=== PATIENT | male | born 1995 | race Caucasian/White ===

== ENCOUNTER 2017-01-15 20:03 | Emergency (ER) | payer OTHER ==
[2017-01-15 20:59] VITALS: BP 123/66
== END 2017-01-15 20:59 | disposition home or self-care (01) ==
LOC: ED 20:03
DX: M54.5 Low back pain (principal); R51 Headache
CPT/HCPCS: J1885

== ENCOUNTER 2017-02-07 13:05 | Emergency (ER) | payer OTHER ==
[~2017-02-07] VITALS: Ht 172.7 cm; Wt 96.2 kg
[2017-02-07 15:00] VITALS: BP 106/80
== END 2017-02-07 15:00 | disposition home or self-care (01) ==
LOC: ED 13:05
DX: R19.7 Diarrhea, unspecified (principal); R10.9 Unspecified abdominal pain

== ENCOUNTER 2017-03-19 00:18 | Emergency (ER) | payer OTHER ==
[2017-03-19 01:01] VITALS: BP 137/78
== END 2017-03-19 01:11 | disposition home or self-care (01) ==
LOC: ED 00:18
DX: S61.305A Unspecified open wound of left ring finger with damage to nail, initial encounter (principal); W45.8XXA Other foreign body or object entering through skin, initial encounter; Y93.89 Activity, other specified; Y99.8 Other external cause status; Y92.89 Other specified places as the place of occurrence of the external cause
CPT/HCPCS: 90715

== ENCOUNTER 2017-03-20 00:30 | Emergency (ER) | payer OTHER ==
[2017-03-20 01:22] VITALS: BP 116/69
== END 2017-03-20 01:22 | disposition home or self-care (01) ==
LOC: ED 00:30
DX: S61.211A Laceration without foreign body of left index finger without damage to nail, initial encounter (principal); W26.8XXA Contact with other sharp object(s), not elsewhere classified, initial encounter; Y93.G2 Activity, grilling and smoking food; Y99.8 Other external cause status; Y92.89 Other specified places as the place of occurrence of the external cause
CPT/HCPCS: A4570

== ENCOUNTER 2017-07-03 11:42 | Emergency (ER) | payer OTHER ==
[~2017-07-03] VITALS: Ht 175.3 cm; Wt 76.4 kg
[2017-07-03 13:40] LABS: BASOPHIL % 0.6 % (0-2); PLATELET COUNT 241 x10^3mcL (130-400)
[2017-07-03 13:44] LABS: RED CELL DISTRIBUTION WIDTH 14.6 % (11.5-14.5)
[2017-07-03 13:48] LABS: CARBON DIOXIDE 30.9 mmol/L (21-32); CHLORIDE SERUM 105 mmol/L (98-107); GLUCOSE SERUM 89 mg/dL (74-106); POTASSIUM SERUM 4.1 mmol/L (3.5-5.1); SODIUM SERUM 141 mmol/L (136-145)
[2017-07-03 13:49] LABS: ALBUMIN 4.1 g/dL (3.4-5.0); ALKALINE PHOSPHATASE 79 U/L (46-116); ALT/SGPT 22 U/L (16-63); AMYLASE 79 U/L (25-115); AST/SGOT 17 U/L (15-37); BILIRUBIN TOTAL 0.8 mg/dL (0.20-1.00); CALCIUM 8.7 mg/dL (8.5-10.1); CREATININE SERUM 0.9 mg/dL (0.7-1.3); GFR1 > 60 mL/min; LIPASE 107 IU/L (73-393); TOTAL PROTEIN, SERUM 7.8 g/dL (6.4-8.2)
[2017-07-03 15:00] LABS: microscopic required? YES; urine erythrocyte TRACE (NEGATIVE)
[2017-07-03 17:20] VITALS: BP 118/64
== END 2017-07-03 17:20 | disposition home or self-care (01) ==
LOC: ED 11:42
PROVIDERS: Emergency Medicine
DX: K59.00 Constipation, unspecified (principal)
CPT/HCPCS: Q9967

== ENCOUNTER 2017-08-27 19:27 | Emergency (ER) | payer OTHER ==
[2017-08-27 20:57] VITALS: BP 114/49
== END 2017-08-27 20:57 | disposition home or self-care (01) ==
LOC: ED 19:27
DX: S39.012A Strain of muscle, fascia and tendon of lower back, initial encounter (principal); X50.0XXA Overexertion from strenuous movement or load, initial encounter; Y93.89 Activity, other specified; Y99.8 Other external cause status; Y92.89 Other specified places as the place of occurrence of the external cause
CPT/HCPCS: 72072

== ENCOUNTER 2017-10-25 11:02 | Emergency (ER) | payer OTHER ==
[~2017-10-25] VITALS: Ht 175.3 cm; Wt 75.7 kg
[2017-10-25 11:47] VITALS: Ht 175.3 cm; Wt 75.7 kg
[2017-10-25 13:01] VITALS: BP 101/78
== END 2017-10-25 13:01 | disposition home or self-care (01) ==
LOC: ED 11:02
DX: M54.5 Low back pain (principal); R10.9 Unspecified abdominal pain
CPT/HCPCS: J1885

== ENCOUNTER 2017-12-02 09:59 | Emergency (ER) | payer OTHER ==
[~2017-12-02] VITALS: Ht 175.3 cm; Wt 77.1 kg
[2017-12-02 10:15] VITALS: BP 116/53; Ht 175.3 cm; Wt 77.1 kg
== END 2017-12-02 11:23 | disposition home or self-care (01) ==
LOC: ED 09:59
DX: R42 Dizziness and giddiness (principal); R11.10 Vomiting, unspecified
CPT/HCPCS: 82962

== ENCOUNTER 2017-12-15 21:30 | Emergency (ER) | payer OTHER ==
[~2017-12-15] VITALS: Ht 172.7 cm; Wt 75.7 kg
[2017-12-15 22:24] VITALS: Ht 172.7 cm; Wt 75.7 kg
[2017-12-15 23:18] LABS: BASOPHIL % 0.3 % (0-2); PLATELET COUNT 229 x10^3mcL (130-400); RED CELL DISTRIBUTION WIDTH 14.1 % (11.5-14.5)
[2017-12-15 23:35] LABS: CALCIUM 8.6 mg/dL (8.5-10.1); CARBON DIOXIDE 29.2 mmol/L (21-32); CHLORIDE SERUM 103 mmol/L (98-107); CREATININE SERUM 0.9 mg/dL (0.7-1.3); GFR1 > 60 mL/min; GLUCOSE SERUM 102 mg/dL (74-106); POTASSIUM SERUM 3.7 mmol/L (3.5-5.1); SODIUM SERUM 141 mmol/L (136-145)
[2017-12-15 23:40] LABS: ALBUMIN 4.1 g/dL (3.4-5.0); ALKALINE PHOSPHATASE 85 U/L (46-116); ALT/SGPT 27 U/L (16-63); AMYLASE 74 U/L (25-115); AST/SGOT 20 U/L (15-37); BILIRUBIN TOTAL 0.4 mg/dL (0.20-1.00); LIPASE 87 IU/L (73-393); TOTAL PROTEIN, SERUM 7.8 g/dL (6.4-8.2)
[2017-12-16 01:47] VITALS: BP 99/51
== END 2017-12-16 01:47 | disposition home or self-care (01) ==
LOC: ED 21:30
PROVIDERS: Emergency Medicine
DX: R10.9 Unspecified abdominal pain (principal); R11.10 Vomiting, unspecified; R19.7 Diarrhea, unspecified
CPT/HCPCS: 83880; 87046; 87046-59; J2270; J2405; J7030

== ENCOUNTER 2018-04-01 23:15 | Emergency (ER) | payer OTHER ==
[~2018-04-01] VITALS: Ht 172.7 cm; Wt 74.8 kg
[2018-04-01 23:20] VITALS: Ht 172.7 cm; Wt 74.8 kg
[2018-04-02 01:05] VITALS: BP 122/79
== END 2018-04-02 00:50 | disposition home or self-care (01) ==
LOC: ED 23:15
DX: S93.401A Sprain of unspecified ligament of right ankle, initial encounter (principal); V29.40XA Motorcycle driver injured in collision with unspecified motor vehicles in traffic accident, initial encounter; Y93.55 Activity, bike riding; Y92.89 Other specified places as the place of occurrence of the external cause; Y99.8 Other external cause status

== ENCOUNTER 2018-04-08 14:05 | Emergency (ER) | payer OTHER ==
[~2018-04-08] VITALS: Ht 170.2 cm; Wt 75.3 kg
[2018-04-08 14:30] VITALS: Ht 170.2 cm; Wt 75.3 kg
[2018-04-08 15:16] VITALS: BP 114/65
== END 2018-04-08 15:16 | disposition home or self-care (01) ==
LOC: ED 14:05
DX: S80.811A Abrasion, right lower leg, initial encounter (principal); V89.2XXA Person injured in unspecified motor-vehicle accident, traffic, initial encounter; Y93.89 Activity, other specified; Y92.89 Other specified places as the place of occurrence of the external cause; Y99.8 Other external cause status

== ENCOUNTER 2018-05-08 08:19 | Emergency (ER) | payer OTHER ==
[~2018-05-08] VITALS: Ht 172.7 cm; Wt 74.8 kg
[2018-05-08 08:34] VITALS: BP 120/50; Ht 172.7 cm; Wt 74.8 kg
== END 2018-05-08 09:53 | disposition home or self-care (01) ==
LOC: ED 08:19
DX: S83.91XA Sprain of unspecified site of right knee, initial encounter (principal); M54.6 Pain in thoracic spine; X50.1XXA Overexertion from prolonged static or awkward postures, initial encounter; Y93.89 Activity, other specified; Y92.89 Other specified places as the place of occurrence of the external cause; Y99.8 Other external cause status
CPT/HCPCS: 72072

== ENCOUNTER 2018-06-21 11:41 | Emergency (ER) | payer OTHER ==
[~2018-06-21] VITALS: Ht 172.7 cm; Wt 73.5 kg
[2018-06-21 11:44] VITALS: BP 108/57; Ht 172.7 cm; Wt 73.5 kg
== END 2018-06-21 12:54 | disposition left against medical advice (07) ==
LOC: ED 11:41
DX: Z53.21 Procedure and treatment not carried out due to patient leaving prior to being seen by health care provider (principal)

== ENCOUNTER 2019-05-31 19:35 | Inpatient (IN) | payer SELFPAY ==
[~2019-05-31] VITALS: Ht 172.7 cm; Wt 78.1 kg
--- NOTE | 2019-05-31 19:42 | NUR ---
EKG IN PROGRESS IN TRIAGE.
--- NOTE | 2019-05-31 20:17 | NUR ---
PT BIB MOTHER FOR C/O OF DIZZINESS THAT STARTED AT APPROX 1730 TODAY AFTER PT GOT HOME FROM HIS GIRLFRIENDS HOUSE. PT ALSO REPORTS NUASEA AND VOMITING. PT DENIES ANY DRUNG USE. PT DENIES ANY PAIN AT THIS TIME. PT NOTED TO BE PALE. PT A/O X3. PT CAN RECALL NAME AND , LOCATION, AND EVENT. WHEN ASKING PT WHAT YEAR IT IS PT STATES "IT VARIES, SOMETIMES FOURTY". PT REORIENTED TO MONTH AND YEAR. RESP ARE EQUAL AND UNLABORED, PT PERRLA. NO ACUTE DISTRESS NOTED. MOTHER AT BEDSIDE.
[2019-05-31 20:22] LABS: BASOPHIL % 0.3 % (0-2); PLATELET COUNT 253 x10^3mcL (130-400); RED CELL DISTRIBUTION WIDTH 14.3 % (11.5-14.5)
--- NOTE | 2019-05-31 20:36 | NUR ---
PT OFF THE FLOOR FOR CT SCAN.
[2019-05-31 20:39] LABS: CALCIUM 8.8 mg/dL (8.5-10.1); CARBON DIOXIDE 23.5 mmol/L (21-32); CHLORIDE SERUM 102 mmol/L (98-107); CREATININE SERUM 0.9 mg/dL (0.7-1.3); GFR1 > 60 mL/min; GLUCOSE SERUM 110 mg/dL (74-106); POTASSIUM SERUM 3.2 mmol/L (3.5-5.1); SODIUM SERUM 140 mmol/L (136-145)
[2019-05-31 20:44] LABS: ALBUMIN 4.1 g/dL (3.4-5.0); ALKALINE PHOSPHATASE 74 U/L (46-116); ALT/SGPT 35 U/L (16-63); AST/SGOT 35 U/L (15-37); TOTAL PROTEIN, SERUM 7.4 g/dL (6.4-8.2)
--- NOTE | 2019-05-31 20:48 | NUR ---
PT BACK FROM CT. PT PROVIDED WITH URINAL AND ENCOURAGE TO PEE. PT STATES HE DOES NOT HAVE TO URINATE AT THIS TIME.
--- NOTE | 2019-05-31 21:00 | NUR ---
PT PROVIDED WITH A CUP OF WATER.
--- NOTE | 2019-05-31 21:13 | NUR ---
CRTITICAL LAB RECIEVED OF A TYLENOL LEVEL OF 192.8, MD SANTIAGO MADE AWARE. PT REPORTS HE ONLY TOOK 1 TYLENOL. PT NOTED TO HAVE "I'M SORRY" WRITTEN ON HIS L HAND IN BLACK MARKER. PT STATES HE IS SAYING SORRY TO HIMSELF WHEN ASKED WHY HE WROTE THAT ON HIS HAND. PT DENIES TAKING ANY OHTER MEDICATION. PTS MOTHER CALLING PTS GIRLFRIEND AT THIS TIME.
--- NOTE | 2019-05-31 21:30 | NUR ---
CALLED POISON CONTROL AND SPOKE TO BONITA. BONITA PAR[place] REPORT AND CRITICAL TYLENOL O0F 192.8. BONITA RECOMMENDS 3 BAGS OF MUCOMYST. THE FIRST ONE 150MG/KG RAN OVER 1HR. THE SECOND BAG 50MG/KG RAN OVER 4HRS, AND THE THIRD BAG 100MG/KG RAN OVER 16 HRS. BONITA REPORTS THE GOAL FOR TREATMENT IS TO REDUCE TYLENOL LEVEL TO 10 OR BELOW AND AST ANS ALT LEVEL NORMAL OR DECREASING. MD SANTIAGO MADE AWARE.
--- NOTE | 2019-05-31 21:42 | NUR ---
PT SEEN WALKING WITH UNSTEADY GAIT TO BATHROOM BEING WALK ASSISTED BY FAMILY MEMEBER. EMT LORNE WAITING WITH WHEELCHAIR OUTSIDE OF BATHROOM TO ASSIST PT BACK TO ROOM.
[2019-05-31 22:06] LABS: AMPHETAMINE QUAL UR NONE DETECTED (See below)
--- NOTE | 2019-05-31 22:24 | NUR ---
PT GIRLFRIEND (DELANEY) AT BEDSIDE. STATES THAT SHE WAS WITH PT TODAY AND LEFT HIM AT APPROX 1700. DELANEY DENIES PT ACTING ABNORMAL OR ARGUEMENTS BETWEEN THE TWO OF THEM
--- NOTE | 2019-05-31 22:28 | NUR ---
DELANEY REPORTS PT TOLD HER HE TOOK 3 TYLENOL PM 500MG AT APPROX 1700 TODAY. DELANEY ALSO PTS FRIENDS FOUND A EMPTY PAIN RELIEF PILL BOTTLE IN PTS ROOM. DELANEY STATES SHE IS TRYING TO FIND OUT THE NAME OF THE MEDICATION.
--- NOTE | 2019-05-31 22:43 | NUR ---
REPORT GIVEN TO HILARIO SHARIF TO ASSUME CARE OF PT.
--- NOTE | 2019-05-31 23:06 | NUR ---
PT REPORTS THE EMPTY PILL BOTTLE IN HIS ROOM WAS TYLENOL 500MG WHICH FOR 50 TABLETS. UNSURE THE EXACT AMOUTN PT TOOK.
--- NOTE | 2019-05-31 23:10 | NUR ---
PT ARRIVED TO ICU BED 5 ACCOMPANIED BY RN SONIA AND EMT LORNE. PT ASSISTED ON TO ICU BED WITH STEADY GAIT. PT ATTACHED TO FULL COMMERCIAL ATTORNEY AND CONTINUOUSE PULSE OXIMETRY. RECEIVED PT AOX4 ABLE TO RESPOND TO COMMANDS, MAKE NEEDS KNOWN. GCS=15. PUPILS 4MM BRISK RESPONSE TO LIGHT B/L, PERRLA. NO REPORTED QIU OR DIZZINESS WHEN ASKED. NO FACIAL DROOP. TRACHEA MIDLINE, NO DRAINAGE TO EENT, NO EENT COMPLAINTS.LUNG SOUNDS CTAB, CHEST RISE/FALL SYMMETRIC, E/U BREATHING, NO ACUTE RESPIRATORY DISTRESS, DENIES SOB. PT ON ROOM AIR. NO COUGH.S1/S2 SOUNDS HEARD. PT DENIES CHEST PAIN.SKIN COLOR CONSISTENT WITH ETHNICITY, CAP REFILL <3 SEC X4 EXTRMITIES PULSES MODERATE X4 EXTREMITIES.GEN WEAKNESS, BED REST AT THIS TIME. ROM ACTIVE. NO CONTRACTURES OR DEFORMITIES NOTED. NO JOINT SWELLING/TENDERNESS.ACTIVE BOWEL SOUNDS X4 QUADRANTS, ABD SOFT/FLAT. NO BM AT THIS TIME. PT REPORTS BM YESTERDAY.NO URINE AT THIS TIME, OFFERED URINAL. NO PENILE EDEMA/DISCHARGE NOTED.SKIN INTACT, WARM/DRY TO TOUCH. IV TO RFA 20G, PORT PATENT, NO S/S OF INFILTRATION, DRESSING CDI.PT ADMITTED FOR TYLENOL OVERDOSE, PT DENIES OVERDOSE. PT DENIES ANY SUICIDAL IDEATION OR PLAN TO HARM OTHERS. PT CALM/COOPERATIVE WITH CARE AT THIS TIME, CLEAR VIEW OF NURSING STATION. [facility] UPDATED ON POC. BED AT LOWEST SETTING, CALL LIGHT WITHIN REACH, WILL CONT TO MONITOR. HOB ELEVATED 30 DEGREES.
--- NOTE | 2019-05-31 23:16 | NUR ---
NORMAL SALINE GTT INITIATED @ 100 ML/HR PER MD ORDER.
--- NOTE | 2019-05-31 23:24 | NUR ---
PT REPORTING NAUSEA AT THIS TIME. VOMITTED APPROX 100 ML OF GREEN/CLEAR EMESIS. DR. KENNEDY MADE AWARE. ADMINISTERED ZOFRAN IVP PER EMAR. HEAD OF BED ELEVATED TO HIGH FOWLERS AT THIS TIME. MOTHER AT BEDSIDE.
[2019-05-31 23:58] VITALS: BP 124/75
--- NOTE | 2019-06-01 00:55 | NUR ---
PT REPORTING 10/10 GENERALIZED ABD PAIN. ADMINISTERED MORPHINE IVP PER EMAR.
[2019-06-01 03:15] VITALS: BP 98/49
[2019-06-01 05:06] LABS: BASOPHIL % 0.1 % (0-2); PLATELET COUNT 232 x10^3mcL (130-400); RED CELL DISTRIBUTION WIDTH 14.3 % (11.5-14.5)
[2019-06-01 05:32] LABS: ALBUMIN 4.1 g/dL (3.4-5.0); ALKALINE PHOSPHATASE 76 U/L (46-116); ALT/SGPT 31 U/L (16-63); AST/SGOT 30 U/L (15-37); BILIRUBIN TOTAL 0.91 mg/dL (0.20-1.00); CALCIUM 8.4 mg/dL (8.5-10.1); CARBON DIOXIDE 23.1 mmol/L (21-32); CHLORIDE SERUM 102 mmol/L (98-107); GFR1 > 60 mL/min; GLUCOSE SERUM 130 mg/dL (74-106); POTASSIUM SERUM 3.9 mmol/L (3.5-5.1); SODIUM SERUM 140 mmol/L (136-145); TOTAL PROTEIN, SERUM 7.5 g/dL (6.4-8.2)
--- NOTE | 2019-06-01 07:18 | NUR ---
GAVE REPORT TO KOLE STERN. UPDATES GIVEN, QUESTIONS ANSWERED.
[2019-06-01 07:56] VITALS: Ht 172.7 cm; Wt 78.1 kg
--- NOTE | 2019-06-01 08:00 | NUR ---
ALERT AND ORIENTED. SITTING UP AT EDGE OF BED FINISHING BREAKFAST. MOTHER AT BEDSIDE. DENIES ANY NUMBNESS,TINGLING,LIGHTHEADEDNESS,DIZZINESS, BLURRED VISION, OR PAIN. NO PHYSICAL LIMITATIONS. NO EDEMA. NS INFUSING 100 CC HOUR TO RT FA. BREATHING FREELY ON RA. GOT UP TO BSC BEFORE BREAKFAST. VSS. ACETADOTE INFUSING 62.5 CC HOUR. RESIDENT WAS IN TO SEE PT THIS AM AND EXPECTS TO SEND PT TO MED/SURG FLOOR LATER TODAY. CALL LIGHT WITHIN REACH.
--- NOTE | 2019-06-01 09:49 | NUR ---
DR. MAURICE, RESIDENTS, SUPERVISOR KEYMODULE ASSEMBLY AND PRIMARY RN AT BEDSIDE FOR MORNING ROUNDS. PLAN OF CARE DISCUSSED WITH PT AND PT'S MOTHER. PT STABLE TO TRANSFER TO [facility]. WILL CONT TO [facility].
--- NOTE | 2019-06-01 10:32 | NUR ---
PT BEING TRANSFERED TO [facility]. REPORT GIVEN TO CHAPARRO.
[2019-06-01 10:50] VITALS: BP 126/80
--- NOTE | 2019-06-01 10:50 | NUR ---
PT ARRIVED FROM ICU ACCOMPANIED BY NURSE AND FAMILY MEMBER. PT LOOKS TO BE IN NO ACUTE DISTRESS AT THIS TIME AND DENIES ANY PAIN. VITAL SIGNS ARE TEMP: 98.6, HR: 73, RR: 16, BP: 126/80, MAP: 95, O2 SAT 99% ON ROOM AIR. PT IS AOX4. RESPIRATIONS EVEN AND UNLABORED ON LUNG SOUNDS ARE CLEAR BILATERALLY ON ROOM AIR. PULSES PALPABLE, NO EDEMA NTOED. SKIN INTACT. IV SITE PATENT WITH NO SIGNS OF ERYTHEMA OR SWELLING WITH IV FLUIDS INFUSING. ORIENTED PT TO ROOM AND UNIT, PT AMBULATORY AND DENIES ANY WEAKNESS. BED IN LOWEST POSITION, CALL LIGHT WITHIN REACH. SITTER AND FAMILY MEMBER AT BEDSIDE. WILL CONTINUE TO MONITOR.
--- NOTE | 2019-06-01 10:54 | NUR ---
PT TRANSFERED TO [address]. CHAPARRO SHARIF WAS IN ROOM TO RECEIVE PT. PT STABLE, INDEPENDENT W ADL'S. MED/SURG PT. ALL BELONGINGS SENT WITH PT. MOTHER AT BEDSIDE. ORIENTED TO ROOM AND CALL LIGHT.
--- NOTE | 2019-06-01 14:15 | NUR ---
PT IS LAYING DOWN IN BED WITH HOB UP WATCHING TV. PT LOOKS TO BE IN NO ACUTE DISTRESS AT THIS TIME AND DENIES ANY PAIN. RESPIRATIONS EVEN AND UNLABORED ON ROOM AIR. FAMILY MEMBERS AND SITTER AT BEDSIDE. CALL LIGHT WITHIN REACH. WILL CONTINUE TO MONITOR.
--- NOTE | 2019-06-01 15:17 | NUR ---
Discount pharmacy card and list to low cost medical clinics given to patient by Muriel.
--- NOTE | 2019-06-01 15:50 | NUR ---
RECEIVED A CALL FROM POISON CONTROL WHO RECOMMENDED HAVING A REPEAT ACETAMINOPHEN LEVEL, HEPATIC PANEL, PT AND INR TO EVALUATE PROGRESS. NOTIFIED RESIDENT.
[2019-06-01 17:23] VITALS: BP 105/51
--- NOTE | 2019-06-01 18:29 | NUR ---
PT IS LAYING DOWN IN BED WITH HOB UP RESTING WITH EYES CLOSED. PT LOOKS TO BE IN NO ACUTE DISTRESS AT THIS TIME. RESPIRATIONS EVEN AND UNLABORED ON ROOM AIR. IV SITE PATENT WITH NO SIGNS OF ERYTHEMA OR SWELLING WITH IV FLUIDS INFUSING. FAMILY MEMBER AT BEDSIDE. CALL LIGHT WITHIN REACH. WILL ENDORSE TO ONCOMING SHIFT.
--- NOTE | 2019-06-01 20:15 | NUR ---
PT CURRENTLY RESTING IN BED, NO ACUTE DISTRESS. FAMILY AT BEDSIDE. A/O X4. NO TELE, MED/SURG. DENIES CHEST PAIN. PULSES PALPABLE IN ALL EXTREMITIES, NO EDEMA NOTED. LUNG SOUNDS CTA BILATERALLY, DENIES SOB. BOWEL SOUNDS ACTIVE, LAST BM 05/31/19. VOIDING WELL. AMBULATORY. SKIN INTACT. IV PATENT AND INTACT. BED IN LOWEST POSITION, SIDE RAILS UP X2, CALL LIGHT WITHIN REACH. SITTER AT BEDSIDE. WILL CONTINUE TO MONITOR.
[2019-06-01 20:52] VITALS: BP 117/53
--- NOTE | 2019-06-02 00:25 | NUR ---
PT CURRENTLY RESTING IN BED, NO ACUTE DISTRESS. SITTER AND FAMILY AT BEDSIDE. WILL CONTINUE TO MONITOR.
[2019-06-02 05:58] VITALS: BP 99/52
--- NOTE | 2019-06-02 06:03 | NUR ---
PT SLEPT PERIODICALLY THROUGHOUT NIGHT, NO ACUTE DISTRESS. ALL NEEDS MET AND ATTENDED TO. NO SIGNIFICANT CHANGES. IV PATENT AND INTACT. BED IN LOWEST POSITION, SIDE RAILS UP X2, CALL LIGHT WITHIN REACH. WILL ENDORSE CARE TO ONCOMING NURSE.
[2019-06-02 06:21] LABS: BASOPHIL % 0.6 % (0-2); PLATELET COUNT 217 x10^3mcL (130-400); RED CELL DISTRIBUTION WIDTH 14.5 % (11.5-14.5)
[2019-06-02 06:34] LABS: CALCIUM 8.4 mg/dL (8.5-10.1); CARBON DIOXIDE 24.7 mmol/L (21-32); CHLORIDE SERUM 111 mmol/L (98-107); GFR1 > 60 mL/min; GLUCOSE SERUM 86 mg/dL (74-106); MAGNESIUM 1.9 mg/dL (1.8-2.4); PHOSPHOROUS 3.1 mg/dL (2.5-4.9); SODIUM SERUM 145 mmol/L (136-145)
[2019-06-02 07:15] VITALS: BP 109/59
--- NOTE | 2019-06-02 07:32 | NUR ---
ASSUMED CARE OF PATIENT. SEEN AWAKE AND ALERT THIS MORNING WITH MOTHER AT BEDSIDE. NO COMPLAINTS OF PAIN OR DISCOMFORT. NO APPARENT DISTRESS NOTED. DENIES SI AT THIS TIME. IV TO RFA PATENT AND INUFSING NS AT 100ML/HR. WILL CONTINUE TO MONITOR.
--- NOTE | 2019-06-02 09:17 | NUR ---
PATIENT SEEN SLEEPING WITH EQUAL AND UNLABORED RESPIRATIONS. NO APPARENT DISTRESS NOTED. MOTHER AND SITTER AT BEDSIDE.
--- NOTE | 2019-06-02 09:42 | NUR ---
PATIENT REFUSING ESCITALOPRAM. EDUCATED ON BENEFITS AND SIDE EFFECTS OF MEDICATION BUT PATIENT CONTINUES TO REFUSE STATING HE "FEELS FINE."
--- NOTE | 2019-06-02 11:16 | NUR ---
PATIENT SEEN IN BED WITH MOTHER AT BEDSIDE. NO NEW ISSUES.
--- NOTE | 2019-06-02 14:04 | NUR ---
CALL FROM POISON CONTROL. UPDATED ON LATEST LABS. PATIENT CASE CLOSED FROM POISON CONTROL.
--- NOTE | 2019-06-02 15:34 | NUR ---
DR. MORGAN NOTIFIED OF CLEARANCE BY POISON CONTROL.
--- NOTE | 2019-06-02 15:51 | NUR ---
PAGED THAT PATIENT REFUSED LEXAPRO THIS AM.
[2019-06-02] MEDS ORDERED: LEXAPRO10 MG PO (17:33)
[2019-06-02 18:13] VITALS: BP 107/60
--- NOTE | 2019-06-02 18:49 | NUR ---
PATIENT SEEN RESTING IN ROOM WITH NO COMPLAINTS OF PAIN OR DISCOMFORT. NO APPARENT DISTRESS NOTED. FAMILY AT BEDSIDE. IV PATENT AND INUFSING NS AT 100ML/HR. WILL ENDORSE CARE TO ONCOMING RN
--- NOTE | 2019-06-02 19:55 | NUR ---
AWAKE AND VERBALLY RESPONSIVE. ABLE TO MAKE NEEDS KNOWN. DENIES ANY HEADCHE/DIZZINES/DISCOMFORT AT THIS PARAM. IV ACCESS AT THE RFA INTACT AND PATENT WITH IVF NS INFUSING AT 100CC/HR. NO SWELLING NOTED AT THE IV SITE. MOTHER AT BEDSIE VERY SUPPORTIVE OF PATIENT'S CURRENT PLAN OF CARE.
[2019-06-02 20:29] VITALS: BP 101/68
[2019-06-02 20:36] VITALS: BP 101/68
--- NOTE | 2019-06-02 21:10 | NUR ---
DR SHANKAR AT BEDSIDE ASSESSING PATIENT. PT DENIES ANY IDEAYION IN HURTING SELF/HURTING OTHERS. CLAIMED FEELS BETTER, FOCUSING TO GO BACK TO WORK UPON DISCAHRGE. DR SHANKAR CLEARED PATIENT FOR DIASCHARGED, PT MADE AWARE. MOTHER AWARE OF DISCHARGE ORDER AWAITNG FOR HER TO STEEL WELDER PT.
[2019-06-02 21:33] VITALS: BP 118/68
--- NOTE | 2019-06-02 21:40 | NUR ---
DISCAHRGED VIA WHEELCHAIR BY NURSE ASSIGNED, ACCOMPANIED BY MOTHER VIA PRIVATE CAR IN STABLE CONDITION.
== END 2019-06-02 21:41 | disposition home or self-care (01) | DRG 918 ==
LOC: ED 19:35 → IC 22:29 → MU 22:29 → IC 23:09 → MU 06-01 10:47
PROVIDERS: Emergency Medicine; ADMIT Internal Medicine
DX: T39.1X2A Poisoning by 4-Aminophenol derivatives, intentional self-harm, initial encounter (principal); M62.82 Rhabdomyolysis; E87.6 Hypokalemia; Y92.89 Other specified places as the place of occurrence of the external cause
CPT/HCPCS: G0378; G0480; J0132; J2270; J2405; J7030; J7050; J7060; Q0092